=== PATIENT | female | born 1990 | race Two or more races ===

== ENCOUNTER 2022-12-04 19:49 | Outpatient (REF) | payer OTHER, SELFPAY ==
[2022-12-10 09:08] LABS: Age Gdln ACOG Testing Note (.); HPV Aptima Negative (Negative); IGP, Aptima HPV, rfx 16/18,45 Note (.)
== END 2022-12-04 19:50 | disposition home or self-care (01) ==
LOC: LAB 19:49
PROVIDERS: PCP Family Medicine; Visit Provider Emergency Medicine
DX: R87.612 Low grade squamous intraepithelial lesion on cytologic smear of cervix (LGSIL) (principal)
CPT/HCPCS: 87255; 87624; G0145

== ENCOUNTER 2023-06-03 14:29 | Outpatient (OUT) | payer BC, SELFPAY ==
[2023-06-04 08:10] LABS: HIV Ab/p24 Ag Screen Non Reactive (Non Reactive)
[2023-06-04 09:08] LABS: HBsAg Screen Negative (Negative)
[2023-06-04 13:08] LABS: Rapid Plasma Reagin, Quant Non Reactive titer (NonRea<1:1)
== END 2023-06-03 14:30 | disposition home or self-care (01) ==
LOC: LAB 14:32
PROVIDERS: PCP Family Medicine; Visit Provider Obstetrics & Gynecology
DX: R87.612 Low grade squamous intraepithelial lesion on cytologic smear of cervix (LGSIL) (principal); Z20.2 Contact with and (suspected) exposure to infections with a predominantly sexual mode of transmission
CPT/HCPCS: 36415; 86592; 87340; 87389; 87624; G0145

== ENCOUNTER 2023-06-03 21:34 | Outpatient (REF) | payer BC, SELFPAY | END 2023-06-03 21:35 | disposition home or self-care (01) | LOC: LAB 21:34 | PROVIDERS: PCP Family Medicine; Visit Provider Obstetrics & Gynecology | DX: R87.612 Low grade squamous intraepithelial lesion on cytologic smear of cervix (LGSIL) (principal) | CPT/HCPCS: 87624; G0145 ==

== ENCOUNTER 2023-12-04 20:51 | Outpatient (REF) | payer OTHER, SELFPAY ==
--- OUTSIDE RECORDS SUMMARY | 2023-12-04 20:56 | XMS_ITS | CCD ---
Author Organization [facility] Care Team Providers Care Manager Icu Name Role Phone ISAI, DR SKINNER Admitting Unavailable ISAI, DR SKINNER Attending Unavailable CAMARENA, DR JORDIN Harvey Primary Care Unavailable ISAI, DR SKINNER Consulting Unavailable ZIEBER, DR GARY Nice Consulting Unavailable ISAI, DR SKINNER Admitting Unavailable ISAI, DR SKINNER Attending Unavailable CAMARENA, DR JORDIN Harvey Primary Care Unavailable DEFRANCE, DR FANG Consulting Unavailable ISAI, DR SKINNER Admitting Unavailable ISAI, DR SKINNER Attending Unavailable DEFRANCE, DR FANG Primary Care Unavailable ISAI, DR SKINNER Admitting Unavailable ISAI, DR SKINNER Attending Unavailable DEFRANCE, DR FANG Primary Care Unavailable ISAI, DR SKINNER Consulting Unavailable AGUBOSIM, DEON Consulting Unavailable LONG, CATRACHITO Consulting Unavailable ISAI, DR SKINNER Admitting Unavailable ISAI, DR SKINNER Attending Unavailable CAMARENA, DR JORDIN Harvey Primary Care Unavailable ISAI, DR SKINNER Consulting Unavailable ISAI, BRODY Attending Unavailable ISAI, BRODY Attending Unavailable DEFRANCE, LEONCIO Leong Attending Unavailable DEFRANCE, LEONCIO Leong Referring Unavailable DEFRANCE, LEONCIO Leong Primary Care Unavailable Defrance Leoncio SOTOMAYOR Primary Care Provider Allergies Allergy Classification Reported Allergen(s) Allergy Type Date of Onset Reaction(s) Facility (1 source) Acetaminophen / HYDROcodone Drug Allergy 7 [facility] Repository (4 sources) Acetaminophen / HYDROcodone; Translations: [HYDROCODONE-ACETA MINOPHEN] Drug Allergy 8 Rash, Itching [facility] Repository Medications Current Medications Medication Drug Class(es) Dates Sig (Normalized) Sig (Original) ibuprofen 200 mg oral tablet (3 sources) Nonsteroidal Anti-inflammatory Drug take 1 tablet by mouth every six hours as needed for pain ibuprofen 200 MG tablet Take 200 mg by mouth every 6 (six) hours if needed for mild pain. Active Problems Active Problems Problem Classification Problem Date Documented Date Episodic/Chronic Contraceptive and procreative management (4 sources) Encounter for sterilization; Translations: [ENCOUNTER FOR STERILIZATION] Onset: 08-02-2021 Episodic Immunizations and screening for infectious disease (2 sources) Contact with and (suspected) exposure to infections with a predominantly sexual mode of transmission; Translations: [Encounter for screening for human papillomavirus (HPV)] Onset: 06-14-2021 Episodic Menstrual disorders (8 sources) Excessive and frequent menstruation with regular cycle; Translations: [Menorrhagia] Onset: 06-26-2021 Chronic Other connective tissue disease (1 source) Plantar fascial fibromatosis; Translations: [Plantar fascial fibromatosis] Onset: 06-19-2023 Episodic Other female genital disorders (3 sources) Pain in female genitalia on intercourse; Translations: [Unspecified dyspareunia] Onset: 07-16-2022 07-16-2022 Chronic Other female genital disorders (1 source) Other specified noninflammatory disorders of vagina; Translations: [OTH SPEC NONINFLAMMATORY D/O VAGINA] Onset: 08-06-2021 Episodic Other nutritional; endocrine; and metabolic disorders (3 sources) Obesity; Translations: [Obesity, unspecified] Onset: 07-16-2022 07-16-2022 Chronic Other screening for suspected conditions (not mental disorders or infectious disease) (4 sources) Encounter for screening for malignant neoplasm of cervix; Translations: [ENC SCREENING MALIG NEOPLASM CERV] Onset: 06-13-2021 Episodic Other upper respiratory disease (1 source) Pain in throat Onset: 06-19-2023 Episodic Other upper respiratory infections (1 source) Other acute sinusitis; Translations: [Other acute sinusitis] Onset: 06-19-2023 Episodic Unclassified (1 source) feet issues Onset: 06-19-2023 Viral infection (3 sources) Herpes simplex of female genitalia; Translations: [Herpesviral infection of other urogenital tract] Onset: 07-16-2022 07-16-2022 Chronic Past or Other Problems Problem Classification Problem Date Documented Date Episodic/Chronic Cancer of cervix (6 sources) Cervicovaginal cytology: Low grade squamous intraepithelial lesion; Translations: [Low grade squamous intraepithelial lesion on cytologic smear of cervix (LGSIL)] Onset: 07-16-2022 07-16-2022 Episodic Other female genital disorders (3 sources) Dysplasia of cervix; Translations: [Dysplasia of cervix uteri, unspecified] Onset: 07-16-2022 07-16-2022 Episodic Other female genital disorders (3 sources) Cervical intraepithelial neoplasia grade 1; Translations: [Mild cervical dysplasia] Onset: 07-16-2022 07-16-2022 Episodic Other female genital disorders (3 sources) Disorder of female genital organs; Translations: [Unspecified condition associated with female genital organs and menstrual cycle] Onset: 07-16-2022 07-16-2022 Episodic Results Test Name Value Interpretation Reference Range Facility CBC AUTO DIFFon 08-02-2021 BASO # 0.1 103/ul Normal 0.0-0.1 [facility] Comment on above: Performed By: #### C BC #### [facility] Laboratory [address] [place] [address] Dr. Nj Chandra Basophils/100 WBC (Bld) 0.6 % Normal 0.2-2.0 [facility] Comment on above: Performed By: #### C BC #### [facility] Laboratory [address] [address] [address] Nj Chandra EO # 0.4 103/ul Normal 0.0-0.7 [facility] Comment on above: Performed By: #### C BC #### [facility] [address] [address] [address] Nj Chandra Eosinophils/100 WBC (Bld) 4.6 % Normal 0.9-7.0 [facility] Comment on above: Performed By: #### C BC #### [facility] Laboratory [address] [address] [address] Nj Chandra Erythrocyte distribution width (RBC) [Ratio] 13.6 % Normal 11.0-15.0 [facility] Comment on above: Performed By: #### C BC #### [facility] Laboratory [address] [place] [address] Dr. Nj Chandra Hematocrit (Bld) [Volume fraction] 36.6 % Normal 36.0-48.0 [facility] Comment on above: Performed By: #### C BC #### [facility] Laboratory [address] [place] [address] Dr. Nj Chandra Hemoglobin (Bld) [Mass/Vol] 12.1 g/dL Normal 12.0-16.0 [facility] Comment on above: Performed By: #### C BC #### [facility] Laboratory [address] [place] [address] Dr. Nj Chandra IG # 0.01 10e3/ul Normal 0.00-0.03 [facility] Comment on above: Performed By: #### C BC #### [facility] [address] [place] [address] Dr. Nj Chandra IG % 0.1 % Normal 0.0-0.5 [facility] Comment on above: Performed By: #### C BC #### [facility] [address] [place] [address] Dr. Nj Chandra LYMPH # 3.6 103/ul Normal 1.2-3.8 [facility] Comment on above: Performed By: #### C BC #### [facility] Laboratory [address] [place] [address] Dr. Nj Chandra Lymphocytes/100 WBC (Bld) 42.4 % Normal 20.5-60.0 [facility] Comment on above: Performed By: #### C BC #### [facility] [address] [place] [address] Dr. Nj Chandra MANUAL DIFF REQ NO Normal [facility] Comment on above: Performed By: #### C BC #### [facility] [address] [place] [address] Dr. Nj Chandra MCH (RBC) [Entitic mass] 28.7 pg Normal 26.7-34.0 [facility] Comment on above: Performed By: #### C BC #### [facility] Laboratory [address] [place] [address] Dr. Nj Chandra MCHC (RBC) [Mass/Vol] 33.1 g/dL Normal 29.9-35.2 [facility] Comment on above: Performed By: #### C BC #### [facility] [address] [address] [address] Nj Chandra MCV (RBC) [Entitic vol] 86.9 fL Normal 81.0-99.0 [facility] Comment on above: Performed By: #### C BC #### [facility] [address] [address] [address] Nj Chandra MONO # 0.4 103/ul Normal 0.3-0.8 [facility] Comment on above: Performed By: #### C BC #### [facility] [address] [place] [address] Dr. Nj Chandra Monocytes/100 WBC (Bld) 5.0 % Normal 1.7-12.0 [facility] Comment on above: Performed By: #### C BC #### [facility] [address] [place] [address] Dr. Nj Chandra NEUT # 4.0 103/ul Normal 1.4-6.5 [facility] Comment on above: Performed By: #### C BC #### [facility] [address] [place] [address] Dr. Nj Chandra Neutrophils/100 WBC (Bld) 47.3 % Normal 43.0-75.0 [facility] Comment on above: Performed By: #### C BC #### [facility] [address] [place] [address] Dr. Nj Chandra Platelet mean volume (Bld) [Entitic vol] 8.7 fL Critically low 9.5-13.5 [facility] Comment on above: Performed By: #### C BC #### [facility] [address] [place] [address] Dr. Nj Chandra PLT 293 103/ul Normal 150-450 [facility] Comment on above: Performed By: #### C BC #### [facility] [address] [place] [address] Dr. Nj Chandra RBC 4.21 106/ul Normal 4.20-5.40 [facility] Comment on above: Performed By: #### C BC #### [facility] [address] [place] [address] Dr. Nj Chandra WBC 8.5 103/ul Normal 4.0-11.0 [facility] Comment on above: Performed By: #### C BC #### [facility] [address] [address] [address] Nj Chandra PREG QUANT HCGon 08-02-2021 HCG QUANT <1 Normal [facility] Comment on above: Performed By: #### P REGQNT #### [facility] [address] [address] [address] Nj Chandra HCG RANGE SEE BELOW Normal [facility] Comment on above: Result Comment: 5-50 0-1 WEEK 40-300 1-2 WEEKS 100-1,000 2-3 WEEKS 500-6,000 3-4 WEEKS 5,000-200,000 1-2 MONTHS 10,000-100,000 2-3 MONTHS 3,000-50,000 2ND TRIMESTER 1,000-50,000 3RD TRIMESTER Performed By: #### P REGQNT #### [facility] [address] [place] [address] Dr. Nj Chandra HEPATITIS PANEL, ACUTEon HBsAg Screen Negative Normal Negative [facility] Comment on above: Performed By: #### P TT, PT #### [facility] [address] [address] [address] Nj Chandra HCV AB 0.1 s/co ratio Normal 0.0-0.9 [facility] Comment on above: Performed By: #### P TT, PT #### [facility] [address] [address] [address] Nj Chandra Hep A Ab, IgM Negative Normal Negative [facility] Comment on above: Performed By: #### P TT, PT #### [facility] [address] [place] [address] Dr. Nj Chandra Hep B Core Ab, IgM Negative Normal Negative [facility] Comment on above: Performed By: #### P TT, PT #### [facility] [address] [place] [address] Dr. Nj Chandra Interpretation: Comment Normal [facility] Comment on above: Result Comment: Nega tive Not infected with HCV, unless recent infection is suspected or other evidence exists to indicate HCV infection. Performed By: #### P TT, PT #### [facility] [address] [place] [address] Dr. Nj Chandra HIV 1 AND 2 WITH REFLEXon HIV Screen 4th Generation wRfx Non-Reactive Normal Non Reactive [facility] Comment on above: Result Comment: HIV Negative HIV-1/HIV-2 antibodies and HIV-1 p24 antigen were NOT detected. There is no laboratory evidence of HIV infection. Performed By: #### H IV12 #### [facility] [address] [place] [address] Dr. Nj Chandra RPR QUANTon 06-27-2021 Rapid Plasma Reagin, Quant Non-Reactive Normal NonRea<1:1 [facility] Comment on above: Result Comment: Plea se Note: This test does not meet current guidelines for screening and diagnosis of syphilis. This test is intended for following treatment response in patients being treated for syphilis infection. To screen for syphilis infection, a reflex cascade that includes both RPR and a treponema-specific assay should be utilized, such as Treponema pallidum (Syphilis) Screening [place] (544792) or Rapid Plasma Reagin (RPR) Test With Reflex to Quantitative RPR and Confirmatory Treponema pallidum Antibodies (016367). Performed By: #### R PRQ #### [facility] [address] [place] [address] Dr. Nj Chandra CBC AUTO DIFFon 06-26-2021 BASO # 0.1 103/ul Normal 0.0-0.1 [facility] Comment on above: Performed By: #### C BC #### [facility] [address] [place] [address] Dr. Nj Chandra Basophils/100 WBC (Bld) 0.5 % Normal 0.2-2.0 [facility] Comment on above: Performed By: #### C BC #### [facility] [address] [place] [address] Dr. Nj Chandra EO # 0.4 103/ul Normal 0.0-0.7 [facility] Comment on above: Performed By: #### C BC #### [facility] [address] [address] [address] Nj Chandra Eosinophils/100 WBC (Bld) 4.0 % Normal 0.9-7.0 [facility] Comment on above: Performed By: #### C BC #### [facility] [address] [place] [address] Dr. Nj Chandra Erythrocyte distribution width (RBC) [Ratio] 13.0 % Normal 11.0-15.0 [facility] Comment on above: Performed By: #### C BC #### [facility] [address] [place] [address] Dr. Nj Chandra Hematocrit (Bld) [Volume fraction] 35.9 % Critically low 36.0-48.0 [facility] Comment on above: Performed By: #### C BC #### [facility] [address] [place] [address] Dr. Nj Chandra Hemoglobin (Bld) [Mass/Vol] 11.9 g/dL Critically low 12.0-16.0 [facility] Comment on above: Performed By: #### C BC #### [facility] [address] [place] [address] Dr. Nj Chandra IG # 0.02 10e3/ul Normal 0.00-0.03 [facility] Comment on above: Performed By: #### C BC #### [facility] [address] [place] [address] Dr. Nj Chandra IG % 0.2 % Normal 0.0-0.5 [facility] Comment on above: Performed By: #### C BC #### [facility] [address] [place] [address] Dr. Nj Chandra LYMPH # 4.6 103/ul Critically high 1.2-3.8 [facility] Comment on above: Performed By: #### C BC #### [facility] [address] [place] [address] Dr. Nj Chandra Lymphocytes/100 WBC (Bld) 46.0 % Normal 20.5-60.0 [facility] Comment on above: Performed By: #### C BC #### [facility] [address] [place] [address] Dr. Nj Chandra MANUAL DIFF REQ NO Normal [facility] Comment on above: Performed By: #### C BC #### [facility] [address] [place] [address] Dr. Nj Chandra MCH (RBC) [Entitic mass] 28.5 pg Normal 26.7-34.0 [facility] Comment on above: Performed By: #### C BC #### [facility] [address] [place] [address] Dr. Nj Chandra MCHC (RBC) [Mass/Vol] 33.1 g/dL Normal 29.9-35.2 [facility] Comment on above: Performed By: #### C BC #### [facility] [address] [place] [address] Dr. Nj Chandra MCV (RBC) [Entitic vol] 85.9 fL Normal 81.0-99.0 [facility] Comment on above: Performed By: #### C BC #### [facility] [address] [place] [address] Dr. Nj Chandra MONO # 0.6 103/ul Normal 0.3-0.8 [facility] Comment on above: Performed By: #### C BC #### [facility] [address] [place] [address] Dr. Nj Chandra Monocytes/100 WBC (Bld) 5.9 % Normal 1.7-12.0 [facility] Comment on above: Performed By: #### C BC #### [facility] [address] [place] [address] Dr. Nj Chandra NEUT # 4.3 103/ul Normal 1.4-6.5 [facility] Comment on above: Performed By: #### C BC #### [facility] [address] [place] [address] Dr. Nj Chandra Neutrophils/100 WBC (Bld) 43.4 % Normal 43.0-75.0 [facility] Comment on above: Performed By: #### C BC #### [facility] [address] [address] [address] Nj Chandra Platelet mean volume (Bld) [Entitic vol] 8.7 fL Critically low 9.5-13.5 [facility] Comment on above: Performed By: #### C BC #### [facility] [address] [place] [address] Dr. Nj Chandra PLT 305 103/ul Normal 150-450 [facility] Comment on above: Performed By: #### C BC #### [facility] [address] [address] [address] Nj Chandra RBC 4.18 106/ul Critically low 4.20-5.40 [facility] Comment on above: Performed By: #### C BC #### [facility] [address] [place] [address] Dr. Nj Chandra WBC 9.9 103/ul Normal 4.0-11.0 [facility] Comment on above: Performed By: #### C BC #### [facility] [address] [place] [address] Dr. Nj Chandra PREG QUANT HCGon 06-26-2021 HCG QUANT <1 Normal [facility] Comment on above: Performed By: #### T SH, PREGQNT #### [facility] [address] [place] [address] Dr. Nj Chandra HCG RANGE SEE BELOW Normal [facility] Comment on above: Result Comment: 5-50 0-1 WEEK 40-300 1-2 WEEKS 100-1,000 2-3 WEEKS 500-6,000 3-4 WEEKS 5,000-200,000 1-2 MONTHS 10,000-100,000 2-3 MONTHS 3,000-50,000 2ND TRIMESTER 1,000-50,000 3RD TRIMESTER Performed By: #### T SH, PREGQNT #### [facility] [address] [place] [address] Dr. Nj Chandra PROTIMEon 06-26-2021 INR Coag (PPP) [Relative time] 1.00 {INR} Normal [facility] Comment on above: Performed By: #### P TT, PT #### [facility] [address] [place] [address] Dr. Nj Chandra INR GUIDELINES SEE BELOW Normal [facility] Comment on above: Result Comment: ARIES RED INR: 2.0 - 3.0 CONDITIONS NOT LISTED BELOW 2.5 - 3.5 FOR PROSTHETIC HEART VALVE REPLACEMENT 2.5 - 3.5 RECURRENT THROMBOSIS Performed By: #### P TT, PT #### [facility] [address] [place] [address] Dr. Nj Chandra PT Coag (PPP) [Time] 10.8 s Normal 9.0-11.6 [facility] Comment on above: Performed By: #### P TT, PT #### [facility] [address] [place] [address] Dr. Nj Chandra PTTon 06-26-2021 aPTT Coag (Bld) [Time] 27.9 s Normal 22.3-36.2 [facility] Comment on above: Performed By: #### P TT, PT #### [facility] [address] [place] [address] Dr. Nj Chandra TSHon 06-26-2021 TSH 1.513 uIU/mL Normal 0.358-3.740 [facility] Comment on above: Performed By: #### T SH, PREGQNT #### [facility] [address] [place] [address] Dr. Nj Chandra TSH RANGE SEE BELOW Normal [facility] Comment on above: Result Comment: <0.3 4 UIU/ml HYPERTHYROID 0.34-5.60 UIU/ml EUTHYROID >5.60 UIU/ml HYPOTHYROID Performed By: #### T SH, PREGQNT #### [facility] [address] [place] [address] Dr. Nj Chandra US PELVIS AND TRANSVAGon US PELVIS AND TRANSVAG EXAMINATION: US PELVIS AND TRANSVAG HISTORY: Excessive and frequent menstruation COMPARISON: No relevant comparison available. TECHNIQUE: Transabdominal and transvaginal sonographic examination. FINDINGS: UTERUS: Normal size and appearance. Uterus size: 12.2 x 7.1 x 5.3 cm ENDOMETRIUM: Normal homogeneous appearance. Endometrial thickness: 9 mm RIGHT OVARY: Contains a 2.1 cm complex cysts versus hypoechoic mass. Duplex Doppler demonstrates normal waveform and flow; resistive index 0.71. Ovary size: 3.7 x 2.4 x 2.6 cm LEFT OVARY: Normal size and appearance. Duplex Doppler demonstrates normal waveform and flow; resistive index 0.62. Ovary size: 2.7 x 2.2 x 1.7 cm CUL-DE-SAC: Trace amount free fluid within right adnexa, likely physiologic. BLADDER: Unremarkable. OTHER: None. IMPRESSION: 1. Complex right ovarian cyst versus mass. Follow-up ultrasound evaluation 6 weeks is recommended to document regression. Electronically authenticated by: GARY SMITH Date: 2021-06-26 13:58 Normal [facility] PAP ACOG PANEL 2: 30 to 65on 06-21-2021 . . Normal [facility] Comment on above: Result Comment: Perf ormed at: WB Performed By: #### P TT, PT #### [facility] [address] [place] [address] Dr[address] Nj Chandra Age Gdln ACOG Testing 30-65 Normal [facility] Comment on above: Performed By: #### P TT, PT #### [facility] [address] [address] [address] Nj Chandra DIAGNOSIS: Comment Abnormal [facility] Comment on above: Result Comment: EPIT HELIAL CELL ABNORMALITY. LOW GRADE SQUAMOUS INTRAEPITHELIAL LESION (LSIL). Performed at: WB Performed By: #### P TT, PT #### [facility] [address] [address] [address] Nj Chandra Electronically signed by: Comment Normal [facility] Comment on above: Result Comment: Iam Wilkinson MD, Pathologist Performed at: WB Performed By: #### P TT, PT #### [facility] [address] [address] [address] Nj Chandra HPV Aptima Positive Abnormal Negative [facility] Comment on above: Result Comment: This nucleic acid amplification test detects fourteen high-risk HPV types (16,18,31,33,35,39,45,51,52,56,58,59,66,68) without differentiation. Performed at: =G Performed By: #### P TT, PT #### [facility] [address] [place] [address] Dr. Nj Chandra Methodology: Comment [facility] Comment on above: Result Comment: This liquid based ThinPrep(R) pap test was screened with the use of an image guided system. Performed at: WB Performed By: #### P TT, PT #### [facility] [address] [place] [address] Dr. Nj Chandra Note: Comment Normal [facility] Comment on above: Result Comment: The Pap smear is a screening test designed to aid in the detection of premalignant and malignant conditions of the uterine cervix. It is not a diagnostic procedure and should not be used as the sole means of detecting cervical cancer. Both false-positive and false-negative reports do occur. . Performed at: WB Performed By: #### P TT, PT #### [facility] [address] [place] [address] Dr. Nj Chandra Pathologist Provided ICD10 Comment Normal [facility] Comment on above: Result Comment: [id number]. [id number] Performed at: WB Performed By: #### P TT, PT #### [facility] [address] [place] [address] Dr. Nj Chandra Performed by: Comment Normal [facility] Comment on above: Result Comment: Samuel Calderón Plant General Manager (ASCP) Performed at: WB Performed By: #### P TT, PT #### [facility] [address] [place] [address] Dr. Nj Chandra Specimen adequacy: Comment Normal [facility] Comment on above: Result Comment: Sati sfactory for evaluation. Endocervical and/or squamous metaplastic cells (endocervical component) are present. Performed at: WB Performed By: #### P TT, PT #### [facility] [address] [place] [address] Dr. Nj Chandra CHLAMYDIA/GONOCOCCUS DOUGLAS (SW AB/URINE/PAPon 06-16-2021 Chlamydia trachomatis, DOUGLAS Negative Normal Negative [facility] Comment on above: Performed By: #### P TT, PT #### [facility] [address] [address] [address] Nj Chandra Neisseria gonorrhoeae, DOUGLAS Negative Normal Negative [facility] Comment on above: Performed By: #### P TT, PT #### [facility] [address] [address] [address] Nj Chandra VAGINITIS/VAGINOSIS DNA PROB Lester 06-15-2021 Niharika species Negative Normal Negative [facility] Comment on above: Performed By: #### V AGINT #### [facility] [address] [address] [address] Nj Chandra Gardnerella vaginalis Negative Normal Negative [facility] Comment on above: Performed By: #### V AGINT #### [facility] [address] [address] [address] Nj Chandra Trichomonas vaginalis Negative Normal Negative [facility] Comment on above: Performed By: #### V AGINT #### [facility] [address] [address] [address] Nj Chandra Vaginitis Plus (VG+)on 06-12 Atopobium Vaginae Low - 0 Normal . [facility] Comment on above: Order Comment: Speci men Comment: Test(s) 182838-Qgdssny albicans, DOUGLAS; 343289- Specimen Comment: Niharika glabrata, DOUGLAS Specimen Comment: was developed and its performance characteristics Specimen Comment: determined by [facility]. It has not been cleared or approved Specimen Comment: by the Food and Drug Administration. Performed By: #### V AGINITIS+ #### [facility] , BVAB2 Low - 0 Normal . [facility] Comment on above: Order Comment: Speci men Comment: Test(s) [id number]-Vglcahv albicans, DOUGLAS; 783093- Specimen Comment: Niharika glabrata, DOUGLAS Specimen Comment: was developed and its performance characteristics Specimen Comment: determined by [facility]. It has not been cleared or approved Specimen Comment: by the Food and Drug Administration. Performed By: #### V AGINITIS+ #### [facility] , Niharika Albicans, DOUGLAS Positive Critically abnormal Negative [facility] Comment on above: Order Comment: Speci men Comment: Test(s) [id number]-Lfcelkj albicans, DOUGLAS; 303074- Specimen Comment: Niharika glabrata, DOUGLAS Specimen Comment: was developed and its performance characteristics Specimen Comment: determined by [facility]. It has not been cleared or approved Specimen Comment: by the Food and Drug Administration. Performed By: #### V AGINITIS+ #### [facility] , Niharika Glabrata, DOUGLAS Negative Normal Negative [facility] Comment on above: Order Comment: Speci men Comment: Test(s) 480986-Gbwbffa albicans, DOUGLAS; 426368- Specimen Comment: Niharika glabrata, DOUGLAS Specimen Comment: was developed and its performance characteristics Specimen Comment: determined by [facility]. It has not been cleared or approved Specimen Comment: by the Food and Drug Administration. Result Comment: PERF ORMED BY: [facility] [address] [place] [address] PATHOLOGIST COMPLIANCE OFFICER MARGARETTE BRAVO M.D. Performed By: #### V AGINITIS+ #### [facility] , Chlamydia Trachomotis, DOUGLAS Negative Normal Negative [facility] Comment on above: Order Comment: Speci men Comment: Test(s) 125228-Gxkmtzz albicans, DOUGLAS; 273490- Specimen Comment: Niharika glabrata, DOUGLAS Specimen Comment: was developed and its performance characteristics Specimen Comment: determined by [facility]. It has not been cleared or approved Specimen Comment: by the Food and Drug Administration. Performed By: #### V AGINITIS+ #### [facility] , Megasphaera Low - 0 Normal . [facility] Comment on above: Order Comment: Speci men Comment: Test(s) 871597-Fizhclj albicans, DOUGLAS; 593836- Specimen Comment: Niharika glabrata, DOUGLAS Specimen Comment: was developed and its performance characteristics Specimen Comment: determined by [facility]. It has not been cleared or approved Specimen Comment: by the Food and Drug Administration. Result Comment: Calc ulate total score by adding the 3 individual bacterial vaginosis (BV) marker scores together. Total score is interpreted as follows: Total score 0-1: Indicates the absence of BV. Total score 2: Indeterminate for BV. Additional clinical data should be evaluated to establish a diagnosis. Total score 3-6: Indicates the presence of BV. This test was developed and its performance characteristics determined by [facility]. It has not been cleared or approved by the Food and Drug Administration. Performed By: #### V AGINITIS+ #### [facility] , Neisseria Gonorrhoeae, DOUGLAS Negative Normal Negative [facility] Comment on above: Order Comment: Speci men Comment: Test(s) [id number]-Defmftd albicans, DOUGLAS; 535682- Specimen Comment: Niharika glabrata, DOUGLAS Specimen Comment: was developed and its performance characteristics Specimen Comment: determined by [facility]. It has not been cleared or approved Specimen Comment: by the Food and Drug Administration. Result Comment: Perf ormed at: [facility] [id number] Landing Support Specialist: Laura Vo MD, Phone: [phone] Performed By: #### V AGINITIS+ #### [facility] , Tric Vag DOUGLAS Negative Normal Negative [facility] Comment on above: Order Comment: Speci men Comment: Test(s) 570481-Oajrzwe albicans, DOUGLAS; 946672- Specimen Comment: Niharika glabrata, DOUGLAS Specimen Comment: was developed and its performance characteristics Specimen Comment: determined by [facility]. It has not been cleared or approved Specimen Comment: by the Food and Drug Administration. Performed By: #### V AGINITIS+ #### [facility] , Vital Signs Date Time Vital Sign Value Performing Clinician Frantz noel 12-04-2023 09:48-0400 Body mass index (BMI) [Ratio] 33.36 kg/m2 [employer] Work Phone: [facility] 12-04-2023 09:48-0400 Body weight 99.52 kg [employer] Work Phone: [facility] 12-04-2023 09:48-0400 Diastolic blood pressure 70 mm[Hg] [employer] Work Phone: [facility] 12-04-2023 09:48-0400 Systolic blood pressure 110 mm[Hg] [employer] Work Phone: [facility] Encounters Encounter Date Encounter Type Care Provider Facility Start: 12-04-2023 End: 12-04-2023 Bamboo flowsheet Brody Isai DO Work Phone: [facility] Start: 12-04-2023 End: 12-04-2023 Bamboo flowsheet Brody Isai DO Work Phone: [facility] Start: 12-04-2023 End: 12-04-2023 Patient encounter procedure Brody Isai DO Work Phone: [facility] Work Phone: Start: 12-04-2023 End: 12-04-2023 Periodic preventive med est patient 18-39 yrs Brody Morelo DO Work Phone: [facility] Comment on above: Well woman exam with routine gynecological exam Start: 06-19-2023 End: 06-19-2023 ambulatory [facility] Start: 06-03-2023 End: 06-03-2023 ambulatory BRODY ALEX Not Available Start: 12-24-2022 End: 12-24-2022 ambulatory BRODY ALEX Not Available Start: 08-02-2021 End: 08-02-[address] BRODY ALEX Facility:[facility] Start: 08-02-2021 Encounter for other preprocedural examination DR BRODY ALEX [facility] Start: 07-30-2021 End: 07-31-2021 Encounter for other preprocedural examination DR BRODY ALEX Facility:[facility] Start: 07-30-2021 End: 07-31-[address] BRODY ALEX Facility:[facility] Start: 06-26-2021 End: 06-27-[address] BRODY ALEX Facility:[facility] Start: 06-13-2021 End: 06-13-[address] BRODY ALEX Facility:[facility] Procedures Date Procedure Procedure Detail Performing Clinician Start: 12-04-2022 Microscopic observat ion [Identifier] in Cervix by Cyto stain Brody Alex DO Work Phone: Plan of Treatment Date Care Activity Detail Author Start: 12-04-2025 Screening for malign ant neoplasm of cervix [facility] Start: 06-09-2024 End: 06-09-2024 Patient encounter procedure 06/09/2024 3:00 PM EDT Procedure Visit [facility] [address] [place] [id number] Brody Alex, DO [address] [place] [address] [facility] Start: 12-04-2023 End: 12-04-2023 Patient encounter procedure 12/04/2023 9:40 AM EDT Office Visit [facility] [address] [place] [id number] Brody Alex, DO [address] [facility] [place] [address] [address] Arrived [facility] Comment on above: Arrived Start: 10-12-2023 Influenza vaccination Influenza Vacc ine (#1) [facility] Start: 05-31-2021 Screening for malign ant neoplasm of cervix HPV/Cotest [facility] Cytology Cervical or vaginal smear or scraping study Pap Smear Pathology and Cytology Routine Well woman exam with routine gynecological exam Ordered: 12/04/2023 [facility] Work Phone: Comment on above: Ordered: 12/04/2023 Human papilloma viru s DNA [Presence] in Unspecified specimen by Probe with amplification HPV DNA probe, amplified Microbiology Routine Well woman exam with routine gynecological exam Ordered: 12/04/2023 [facility] Comment on above: Ordered: 12/04/2023 Immunizations Immunization Date Immunization Notes Care Provider [facility] 12-13-2015 influenza virus vacc ine, unspecified formulation Brody Alex DO Work Phone: [facility] Payers Date Payer Category Payer Private Health Insurance [facility] [id number] 2023 Unknown [id number] 1991 Unknown [id number] .[id number] 1991 Unknown [id number] .[id number] 1991 Unknown [id number] .[id number] 1991 Unknown [id number] .[id number] 1991 Unknown [id number] .[id number] 1991 Unknown [id number] .[id number] 1991 Unknown [id number] .[id number] 1991 Unknown [id number] .[id number] 1959 Unknown [id number] Social History Date Type Detail Facility Start: 07-15-2022 Tobacco smoking stat [facility] Never smoked tobacco [facility] Start: 07-15-2022 Tobacco use and exposure Smoke less tobacco non-user [facility] Start: 06-03-2023 End: 12-04-2023 Alcoholic beverage intake Lifetime non-drinker (finding) [facility] Start: 06-03-2023 History of Social function [facility] Start: 06-03-2023 Tobacco use panel [facility] Start: 1990 Sex assigned at Not on file [facility] History of Present illness Narrative 12-04-2023 Clarita Valentinr, DOORS PREFITTER - 12/04/2023 9:40 AM EDT Note Date & Type Note Facility 12-04-2023 History of Presen t illness Narrative Reason for Appointment: Patient ID: Amalia Rivera is a 33 y.o. female who presents for Well Women Visit Patient presents today for Annual Exam. MEDICATIONS Current Outpatient Medications Medication Instructions ibuprofen 200 mg, Every 6 hours PRN ALLERGIES Allergies Allergen Reactions Hydrocodone-Acetaminophen Rash and Itching PROBLEMS Active Ambulatory Problems Diagnosis Date Noted Cervical dysplasia 07/16/2022 Cervical intraepithelial neoplasia grade 1 07/16/2022 Disorder of female genital organs 07/16/2022 Herpes simplex of female genitalia 07/16/2022 Low grade squamous intraepithelial lesion (LGSIL) on cervicovaginal cytologic smear 07/16/2022 Menorrhagia 07/16/2022 Obesity 07/16/2022 Pain in female genitalia on intercourse 07/16/2022 Papanicolaou smear of cervix with atypical squamous cells cannot exclude high grade squamous intraepithelial lesion (ASC-H) 07/16/2022 Resolved Ambulatory Problems Diagnosis Date Noted No Resolved Ambulatory Problems Past Medical History: Diagnosis Date Atypical squamous cells cannot exclude high grade squamous intraepithelial lesion on cytologic smear of cervix (ASC-H) Cervical motion tenderness Dyspareunia in female Dysplasia of cervix, low grade (MERCEDES 1) Encounter for Papanicolaou smear of cervix in high-risk patient with prior abnormal result Genital herpes in women High risk sexual behavior History of endometrial ablation LGSIL of cervix of undetermined significance Obesity (BMI 30.0-34.9) Pap smear to confirm recent normal smear following initial abnormal smear Postop check HISTORY PAST MEDICAL HISTORY SOCIAL HISTORY Past Medical History: Diagnosis Date Atypical squamous cells cannot exclude high grade squamous intraepithelial lesion on cytologic smear of cervix (ASC-H) Cervical dysplasia Cervical motion tenderness Dyspareunia in female Dysplasia of cervix, low grade (MERCEDES 1) Encounter for Papanicolaou smear of cervix in high-risk patient with prior abnormal result Genital herpes in women High risk sexual behavior History of endometrial ablation LGSIL of cervix of undetermined significance Menorrhagia Obesity (BMI 30.0-34.9) Pap smear to confirm recent normal smear following initial abnormal smear Postop check Social History Tobacco Use Smoking status: Never Smokeless tobacco: Never Substance Use Topics Alcohol use: Never Drug use: Never FAMILY HISTORY Family History Problem Relation Name Age of Onset Mental illness Mother Hypertension Father Hypertension Maternal Grandfather SURGICAL HISTORY Past Surgical History: Procedure Laterality Date SECTION, LOW TRANSVERSE x2 [place] COLPOSCOPY CERVIX VAG LOOP ELTRD BX CERVIX 11/2016 TUBAL LIGATION Bilateral REVIEW OF SYSTEMS Review of Systems: Review of Systems All other systems reviewed and are negative. OBJECTIVE Objective: Physical Exam Genitourinary: Breasts: Breasts are soft. Right: Normal. Left: Normal. Vitals: Estimated body mass index is 33.36 kg/m as calculated from the following: Height as of 12/24/22: 5' 8 . Weight as of this encounter: 219 lb 6.4 oz. BP: 110/70 No LMP recorded (within months). ASSESSMENT & PLAN ICD-10-CM 1. Well woman exam with routine gynecological exam Z01.419 Annual Exam: Patient presents today for an annual exam. Patient states she is doing well and has no complaints. Pap was obtained without difficulty. Orders Placed This Encounter Procedures HPV DNA probe, amplified Follow Up: Patient is to return in one year for annual unless needed otherwise. Documented by Clarita Tang LPN on behalf of: Brody Alex DO documented in this encounter [facility] Clinical Note 08-02-2021 Note Date & Type Note Facility 08-02-2021 Note OPERATIVE NOTE OPERATION DATE: 08/02/2021 PROCEDURE: Mirtha endometrial ablation with hysteroscopy as well as bilateral laparoscopic salpingectomy. PREOPERATIVE DIAGNOSIS: Menorrhagia, desire permanent sterilization. POSTOPERATIVE DIAGNOSIS: Menorrhagia, desire permanent sterilization. ANESTHESIA: General. SURGEON: Brody Alex D.O. SURGERY NURSE: BERNARD Melchor URINE OUTPUT: Yellow and clear. SPECIMEN: Both tubes. FINDINGS: Normal appearing ovaries, uterus and tubes; however, significant adhesions of the bladder to the anterior portion of the uterus from prior . BLOOD LOSS: 5 mL. PROCEDURE: The patient was taken back to the OR where she was prepped and draped in the normal sterile fashion after being placed in the dorsal lithotomy position, after being placed under general anesthesia without difficulty. a weighted speculum was then placed into the vagina. The anterior lip was grasped with a single tooth tenaculum. The patient was then sounded to approximately 9 cm. The patient was gently sounded using Hegar dilators and the hysteroscope was passed through the cervix into the uterus where both ostia were seen. No gross evidence of polyps, fibroids or malignancy. The cervical length was noted to be 4 cm. The Mirtha ablation apparatus was set to approximately 5 cm in length. This was placed in through the cervix and into the uterus. After the seal was tested, at that time the total ablation of 120 seconds was performed with the Mirtha without difficulty. All instruments were removed from the vagina. A wet sponge stick was placed into the patient's vagina. Attention was then turned to the patient's abdomen, where a scalpel was used to make a small infraumbilical incision. The S retractors were then used to dissect the underlying layers until the fascia could be seen. The fascia was then grasped with John clamps and tented up. A knife was then used to make a small incision to the fascia. The muscle was identified, at that time two sutures of #0 Vicryl on a GI needle was then used and placed through the fascia. The peritoneum was then identified and entered bluntly. The 10-4 Woodrow was then placed into the patient's abdomen. This was confirmed with direct visualization of the bowel, using the laparoscope. The patient's abdomen was then insufflated using approximately 4 liters of CO2 gas. Survey of the patient's abdomen demonstrated normal appearing ovaries, uterus and tubes. A second and third lateral ports, which was 7-8 in size and 5 mm in size, was then placed laterally after incision was made in the skin under direct visualization. The patient's tube on the patient's right side was identified. The tube was then tented up using a grasper. The LigaSure was used to transect and coagulate the mesosalpinx from the fimbriated end to the insertion at the uterus. The tube was amputated and removed in its entirety. Excellent hemostasis was noted. This was performed on the contralateral side as well. The lateral ports were then moved under direct visualization with excellent hemostasis. The abdomen was desufflated. All instruments were removed from the patient's abdomen. The fascia was closed using the #0 Vicryl on GI needle. The skin was closed using 4- 0 Vicryl subcuticularly. All instruments were removed from the patient's vagina as well. The patient was taken out of the dorsal lithotomy position and placed in the supine position and taken to recovery in stable condition. Sponge, lap and needle counts were correct x2. Omental adhesions were removed from the anterior abdominal wall using the LigaSure. ??? IF Signed and Approved by: DR BRODY ALEX . 08/05/2021 10:47:00 [facility] Evaluation note Note Date & Type Note Facility Evaluation note Diagnosis Well woman exam with routine gynecological exam Routine gynecological examination documented in this encounter [facility] Summary Purpose Family History No Family History Records FoundNo Family History Records FoundNo Family History Records FoundNo Family History Records Found Advance Directives No Advanced Directives Records FoundNo Advanced Directives Records FoundNo Advanced Directives Records FoundNo Advanced Directives Records Found Additional Source Comments INFORMATION SOURCE (unrecogn ized section and content) DATE CREATED AUTHOR 02/26/2021 [facility] DATE CREATED AUTHOR AUTHOR'S ORGANIZ ATION 08/07/2021 [facility] DATE CREATED AUTHOR AUTHOR'S ORGANIZ ATION 06/04/2023 [facility] d[facility] Specialists EPIC DATE CREATED AUTHOR AUTHOR'S ORGANIZ ATION 06/21/2023 [facility] Care Teams (unrecognized sec tion and content) Manager Icu Relationship Specialty Start Date End Date Leoncio Waller MD [address] [place] [address] PCP - General Family Medicine 12/04/22 Manager Icu Relationship Specialty Start Date End Date Leoncio Waller MD [address] [address] PCP - General Family Medicine 12/04/22 Reason for Visit (unrecogniz ed section and content) Reason Comments Well Women Visit FOR RECORDS PERTAINING TO PATIENTS WHO ARE OR HAVE BEEN ENROLLED IN A CHEMICAL DEPENDENCY/SUBSTANCEABUSE PROGRAM, SOME INFORMATION MAY BE OMITTED. This clinical summary was aggregated from multiple sources. Caution should be exercised in using it in the provision of clinical care. This summary normalizes information from multiple sources, and as a consequence, information in this document may materially change the coding, format and clinical context of patient data. In addition, data may be omitted in some cases. CLINICAL DECISIONS SHOULD BE BASED ON THE PRIMARY CLINICAL RECORDS. [facility]. provides no warranty or guarantee of the accuracy or completeness of information in this document.
== END 2023-12-04 20:52 | disposition home or self-care (01) ==
LOC: LAB 20:51
PROVIDERS: PCP Family Medicine; Visit Provider Obstetrics & Gynecology
DX: Z01.419 Encounter for gynecological examination (general) (routine) without abnormal findings (principal)
CPT/HCPCS: 87624; 88175

== ENCOUNTER 2024-06-09 19:49 | Outpatient (REF) | payer OTHER, SELFPAY ==
[2024-06-14 11:08] LABS: Age Gdln ACOG Testing Note (.); HPV Aptima Negative (Negative); IGP, Aptima HPV, rfx 16/18,45 Note (.)
== END 2024-06-09 19:50 | disposition home or self-care (01) ==
LOC: LAB 19:49
PROVIDERS: PCP Family Medicine; Visit Provider Obstetrics & Gynecology
DX: Z01.419 Encounter for gynecological examination (general) (routine) without abnormal findings (principal)
CPT/HCPCS: 87624; 88175